=== PATIENT | female | born 2000 | race Native Hawaiian/Other Pacific Islander ===

== ENCOUNTER 2022-01-01 19:31 | Emergency (ER) | payer SELFPAY ==
[~2022-01-01] VITALS: Ht 165 cm; Wt 102.0 kg
--- NOTE | 2022-01-01 19:43 | ED Abdominal Pain ---
General Chief Complaint: OB < 20 WEEKS Stated Complaint: CRAMPING, Nursing Triage Note: PT TO ED VIA [facility] W/ COMPLAINTS OF ABD CRAMPING AND DISCHARGE. PT IS APPROX 3 MONTHS , . PT REPORTS MULTIPLE PREVIOUS MISCARRIAGES AROUND THIS TIME IN . PT IS RH NEGATIVE AND HAS RECEIVED RHOGAM WITH PREVIOUS PREGNANCIES. Source of Information: Patient Exam Limitations: No Limitations History of Present Illness Date Seen by Provider: January 01, 2022 Time Seen by Provider: 19:41 Initial Comments Patient is a 21-year-old female who is G7, P3 presents ED with lower abdominal pain. This occurred about 1 hour ago. She states she was eating at the time. Started having a severe stabbing pain in her lower abdomen with radiation up to her upper abdomen. She did vomit. Rates pain 6 out of 10. She states her last menstrual cycle was October 11. Recently moved to the area. She has not had an ultrasound. She found out she was the day after Mother's Day. History of miscarriage in the past. Denies of any vaginal bleeding. She did not noted her leggings were wet but states there was no blood. Did not smell like urine. Denies fever, chest pain, shortness of breath, headache, dizziness. Refused any pain medication on arrival. History of C-sections. She denies any vaginal discharge, vaginal bleeding, dysuria, hematuria Allergies and Home Medications Allergies Coded Allergies: Penicillins (Verified Allergy, Unknown, 01/01/22) Patient Home Medication List Home Medication List Reviewed: Yes Cephalexin (Cephalexin) 500 Mg Tablet, 500 MG PO BID PRN Prescribed by: BURAK GUILLERMO on 01/01/22 0010 Review of Systems Review of Systems Constitutional: No chills, No diaphoresis, No malaise, No weakness EENTM: No Blurred Vision, No Double Vision, No Eye Pain Respiratory: Denies Cough, Denies Shortness of Air, Denies SOA With Exertion Cardiovascular: Denies Chest Pain, Denies Edema Gastrointestinal: Abdominal Pain; Denies Constipated, Denies Diarrhea, Denies Nausea, Denies Vomiting Genitourinary: Denies Burning, Denies Discharge, Denies Drainage, Denies Frequency Musculoskeletal: No joint pain Skin: No change in color, No change in hair/nails Endocrine: Denies Flushing All Other Systems Reviewed Negative Unless Noted: Yes Past Ercfscf-[id number]-[id number] Hx Patient Social History Tobacco Use?: Yes Tobacco type used: Cigarettes Substance use?: No Additional substance use comme: PREVIOUS RECREATIONAL DRUG USE Alcohol Use?: No Pt feels they are or have been: No Past Medical History Surgery/Hospitalization HX: PT HAS HX ASTHMA AND MULTIPLE PREGNANCIES Last Menstrual Period: Oct 10, 2021 Physical Exam Vital Signs Vital Signs - First Documented 01/01/22 19:33 Pulse 100 Resp 18 B/P (MAP) 115/80 (92) Pulse Ox 98 O2 Delivery Room Air Capillary Refill : Less Than 3 Seconds Height/Weight/BMI Height: '" Weight: lbs. oz. kg; 37.00 BMI Method: General Appearance: WD/WN, no apparent distress HEENT: PERRL/EOMI, normal ENT inspection, TMs normal, pharynx normal Neck: non-tender, full range of motion, supple, normal inspection Respiratory: chest non-tender, lungs clear, normal breath sounds, no respiratory distress Cardiovascular: regular rate, rhythm, no edema, no gallop, no JVD Gastrointestinal: normal bowel sounds, non tender, no organomegaly, no pulsati le mass, tenderness (Suprapubic tenderness on palpation.) Extremities: normal range of motion, non-tender, normal inspection Back: normal inspection, no CVA tenderness Pelvic: normal adnexa, other Neurologic/Psychiatric: 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, no motor/sensory deficits, alert, normal mood/affect, oriented x 3 Skin: normal color, warm/dry Progress/Results/Core Measures Results/Orders Lab Results Laboratory Tests Test 01/01/22 19:33 01/01/22 19:46 01/01/22 19:55 Range/Units Lab Scanned Report LAB Reports [id number] White Blood Count 11.6 H 4.3-11.0 10^3/uL Red Blood Count 3.60 L 3.80-5.11 10^6/uL Hemoglobin 11.7 11.5-16.0 g/dL Hematocrit 34 L 35-52 % Mean Corpuscular Volume 93 80-99 fL Mean Corpuscular Hemoglobin 33 25-34 pg Mean Corpuscular Hemoglobin Concent 35 32-36 g/dL Red Cell Distribution Width 13.2 10.0-14.5 % Platelet Count 258 130-400 10^3/uL Mean Platelet Volume 10.9 9.0-12.2 fL Immature Granulocyte % (Auto) 1 % Neutrophils (%) (Auto) 71 42-75 % Lymphocytes (%) (Auto) 21 12-44 % Monocytes (%) (Auto) 6 0-12 % Eosinophils (%) (Auto) 2 0-10 % Basophils (%) (Auto) 0 0-10 % Neutrophils # (Auto) 8.2 H 1.8-7.8 10^3/uL Lymphocytes # (Auto) 2.4 1.0-4.0 10^3/uL Monocytes # (Auto) 0.7 0.0-1.0 10^3/uL Eosinophils # (Auto) 0.2 0.0-0.3 10^3/uL Basophils # (Auto) 0.0 0.0-0.1 10^3/uL Immature Granulocyte # (Auto) 0.1 0.0-0.1 10^3/uL Sodium Level 136 135-145 MMOL/L Potassium Level 3.4 L 3.6-5.0 MMOL/L Chloride Level 108 H 98-107 MMOL/L Carbon Dioxide Level 18 L 21-32 MMOL/L Anion Gap 10 5-14 MMOL/L Blood Urea Nitrogen 7 7-18 MG/DL Creatinine 0.54 L 0.60-1.30 MG/DL Estimat Glomerular Filtration Rate 133 BUN/Creatinine Ratio 13 Glucose Level 100 70-105 MG/DL Calcium Level 8.4 L 8.5-10.1 MG/DL Corrected Calcium 9.0 8.5-10.1 MG/DL Total Bilirubin 0.1 0.1-1.0 MG/DL Aspartate Amino Transf (AST/SGOT) 14 5-34 U/L Alanine Aminotransferase (ALT/SGPT) 13 0-55 U/L Alkaline Phosphatase 64 40-136 U/L Total Protein 6.1 L 6.4-8.2 GM/DL Albumin 3.2 3.2-4.5 GM/DL Lipase 19 8-78 U/L Human Chorionic Gonadotropin, Quant 21989 H <5 MIU/ML Urine Color YELLOW Urine Clarity CLEAR Urine pH 6.0 5-9 Urine Specific [place] >=1.030 1.016-1.022 Urine Protein TRACE H NEGATIVE Urine Glucose (UA) NEGATIVE NEGATIVE Urine Ketones NEGATIVE NEGATIVE Urine Nitrite POSITIVE H NEGATIVE Urine Bilirubin NEGATIVE NEGATIVE Urine Urobilinogen 0.2 < = 1.0 MG/DL Urine Leukocyte Esterase 2+ H NEGATIVE Urine RBC (Auto) NEGATIVE NEGATIVE Urine RBC 2-5 H /HPF Urine WBC 5-10 H /HPF Urine Squamous Epithelial Cells 10-25 H /HPF Urine Renal Epithelial Cells NONE /HPF Urine Crystals NONE /LPF Urine Bacteria LARGE H /HPF Urine Casts NONE /LPF Urine Mucus NEGATIVE /LPF Urine Culture Indicated YES Urine Test POSITIVE NEGATIVE My Orders Orders - DIO JJ Cbc With Automated Diff (01/01/22 19:38) Comprehensive Metabolic Panel (01/01/22 19:38) Lipase (01/01/22 19:38) Hcg,Quantitative (01/01/22 19:38) Ua Culture If Indicated (01/01/22 19:38) Neis Juan Dna Urine Test (01/01/22 19:38) Chlamydia Trachomatis Urine (01/01/22 19:38) Abo Rh Type (01/01/22 19:41) Urine Bedside (01/01/22 19:56) Hcg,Qualitative Urine (01/01/22 19:57) Urine Culture (01/01/22 19:55) Rhogam Administration (01/01/22 20:49) Rh Immune Globulin Rhophylac (01/01/22 20:49) Rhogam Administration (01/01/22 20:49) Us Ob Preg Late(14-40wks)68802 (01/01/22 19:38) Vital Signs/I&O 01/01/22 01/01/22 19:33 21:42 Pulse 100 100 Resp 18 18 B/P (MAP) 115/80 (92) 112/70 Pulse Ox 98 96 O2 Delivery Room Air Room Air Blood Pressure Mean: 92 Departure Communication (PCP) Patient with abdominal pain right before arrival. Radiate to her upper abdomen. Pain resolved right before arrival. No current vaginal bleeding vaginal discharge or urinary symptoms. Urinalysis concerning for UTI positive for . Last menstrual cycle was late September. Patient beta quant 11,000. Rh-. Patient Was given RhoGAM here since she refused pelvic exam. History of miscarriage in the past and her OB was concern secondary to her RH type. Sexual transmitted infections currently pending. Refused wet mount and did not want to self swab. Limited without pelvic exam. History of miscarriage unclear if this is secondary to Rh-. She is scheduled to follow-up with OB on January 19. Ultrasound showed that she is 21 weeks . She states symptoms have resolved. She is G7, P3 with history of 3 miscarriage. Patient was in a hurry to leave and requested to be discharged. She states she will call [facility] to follow-up in the morning. Recommend prenatals. Will discharge with Keflex. If any worsening symptoms return back to ED. Impression Primary Impression: 21 weeks gestation of Disposition: HOME, SELF-CARE Condition: Stable Departure-Patient Inst. Decision time for Depature: 21:06 Referrals: [facility] [place] Patient Instructions: Care Add. Discharge Instructions: Recommend prenatals. Recommend staying hydrated. Tylenol for pain. Follow-up with OB for further evaluation. If any worsening symptoms return back to ED for further evaluation. Keflex UTI All discharge instructions reviewed with patient and/or family. Voiced understanding. Scripts Cephalexin (Cephalexin) 500 Mg Tablet 500 MG PO BID PRN for 7 Days, #14 TAB Prov: DIO JJ 01/01/22 DIO JJ January 01, 2022 19:43
[2022-01-01 19:54] LABS: BASOPHILS % (AUTO) 0 % (0-10); EOSINOPHILS # (AUTO) 0.2 10^3/uL (0.0-0.3); EOSINOPHILS % (AUTO) 2 % (0-10); HEMATOCRIT 34 % (35-52); HEMOGLOBIN 11.7 g/dL (11.5-16.0); LYMPHOCYTES # (AUTO) 2.4 10^3/uL (1.0-4.0); LYMPHOCYTES % (AUTO) 21 % (12-44); MEAN CORPUSCULAR HEMOGLOBIN 33 pg (25-34); MEAN CORPUSCULAR HGB CONC 35 g/dL (32-36); MEAN CORPUSCULAR VOLUME 93 fL (80-99); MEAN PLATELET VOLUME 10.9 fL (9.0-12.2); MONOCYTES # (AUTO) 0.7 10^3/uL (0.0-1.0); MONOCYTES % (AUTO) 6 % (0-12); NEUTROPHILS # (AUTO) 8.2 10^3/uL (1.8-7.8); NEUTROPHILS % (AUTO) 71 % (42-75); PLATELET COUNT 258 10^3/uL (130-400); WHITE BLOOD COUNT 11.6 10^3/uL (4.3-11.0)
[2022-01-01 20:02] LABS: BILIRUBIN,URINE NEGATIVE (NEGATIVE); CLARITY,URINE CLEAR; COLOR,URINE YELLOW; GLUCOSE, URINE (UA) NEGATIVE (NEGATIVE); KETONES,URINE NEGATIVE (NEGATIVE); LEUKOCYTE ESTERASE ,URINE 2+ (NEGATIVE); NITRITE,URINE POSITIVE (NEGATIVE); PROTEIN,URINE TRACE (NEGATIVE)
[2022-01-01 20:14] LABS: BACTERIA,URINE LARGE /HPF
[2022-01-01 20:27] LABS: ALBUMIN 3.2 GM/DL (3.2-4.5); BILIRUBIN,TOTAL 0.1 MG/DL (0.1-1.0); CALCIUM 8.4 MG/DL (8.5-10.1); CREATININE SERUM 0.54 MG/DL (0.60-1.30); POTASSIUM 3.4 MMOL/L (3.6-5.0); TOTAL PROTEIN 6.1 GM/DL (6.4-8.2)
--- NOTE | 2022-01-01 21:02 | Diagnostic Imaging Report ---
INDICATION: Abdominal pain. Unsure of dates. TECHNIQUE: Multiple real-time grayscale images were obtained over the gravid uterus. COMPARISON: None. FINDINGS: A single live intrauterine gestation is visualized in transverse orientation. Measurements provided below correspond with an estimated age of 21 weeks 1 day with an estimated due date of 05/13/2022. heart tones measure 153 cm/s. The placenta is anterior and not low lying. The amniotic fluid visually has a normal appearance although no measurements were provided. The cervix has a normal appearance and measures 3.8 cm in length. A formal anatomic survey was not performed. No obvious abnormalities are identified. Biometrical measurements are as follows: Biparietal 4.93 cm, age 21 weeks 0 days. Head circumference 18.97 cm, age 21 weeks 2 days. Abdominal circumference 16.08 cm, age 21 weeks 2 days. Femur length 3.35 cm, age 20 weeks 4 days. Sonographic estimate age: 21 weeks 1 days. Sonographic estimated date of delivery: 05/13/2022. Estimated Weight: 386 gm (+/- 57 gm). LMP percentile: >98%. heart rate: 153 beats per minute. number: 1 of 1. IMPRESSION: 1. Single live intrauterine gestation in transverse orientation measuring 21 weeks 1 day with an estimated due date of 05/13/2022. Recommend continued follow-up, as indicated. 2. No abnormalities are identified on this exam. Dictated by: Dictated on workstation # [id number]
[2022-01-01] MEDS ORDERED: CEPH500T PO (21:08)
[2022-01-01 21:42] VITALS: BP 112/70
== END 2022-01-01 21:42 | disposition home or self-care (01) ==
LOC: ER 19:33
DX: O26.892 Other specified pregnancy related conditions, second trimester (principal); R10.30 Lower abdominal pain, unspecified; Z87.59 Personal history of other complications of pregnancy, childbirth and the puerperium; Z3A.21 21 weeks gestation of pregnancy
CPT/HCPCS: 36415; 76805; 80053; 81000; 83690; 84702; 84703; 85025; 86900; 86901; 87077; 87088; 87491; 87591; 96372

== ENCOUNTER 2022-03-09 22:10 | Outpatient (CLI) | payer MEDICAID ==
[~2022-03-09] VITALS: Ht 166 cm; Wt 108.4 kg
[~2022-03-09 22:10] MED LIST: CEPH500T PO
[2022-03-09 22:19] VITALS: BP 132/65
[2022-03-09 22:44] LABS: BILIRUBIN,URINE NEGATIVE (NEGATIVE); CLARITY,URINE CLOUDY; COLOR,URINE YELLOW; GLUCOSE, URINE (UA) NEGATIVE (NEGATIVE); KETONES,URINE TRACE (NEGATIVE); LEUKOCYTE ESTERASE ,URINE 1+ (NEGATIVE); NITRITE,URINE NEGATIVE (NEGATIVE); PROTEIN,URINE TRACE (NEGATIVE)
[2022-03-09 23:03] LABS: AMORPHOUS SEDIMENT,UR LARGE AMOR PHOSPHATE /LPF; BACTERIA,URINE MODERATE /HPF; RBC,URINE 25-50 /HPF
[2022-03-09] MEDS ORDERED: PREN-142 PO (23:11)
--- NOTE | 2022-03-11 07:45 | Physician Query-Final Dx ---
Clinic Account Progress/Dx Physician Query: Please give diagnosis Please include # weeks gestation Date of Service Mar 09, 2022 at 22:10 BHARATH,AugMar 11, 2022 07:45
== END 2022-03-09 23:15 | disposition home or self-care (01) ==
LOC: WSo 22:10
PROVIDERS: ATTEND Family Medicine
DX: O62.9 Abnormality of forces of labor, unspecified (principal); Z3A.31 31 weeks gestation of pregnancy
CPT/HCPCS: 81000; 87077; 87088; 99213

== ENCOUNTER 2022-04-25 14:28 | Inpatient (IN) | payer MEDICAID ==
[~2022-04-25] VITALS: Ht 157.2 cm; Wt 113.4 kg
[2022-04-25] VITALS (19 sets, daily range): BP systolic 113–135; BP diastolic 50–84
[~2022-04-25 14:28] MED LIST changes: +PREN-142 PO
--- NOTE | 2022-04-25 16:21 | Postpartum Progress Note ---
Note Note Day # 1 Subjective: Patient reports doing well without complaints. She is ambulating, voiding. Tolerating a regular diet without nausea or vomiting. Normal lochia. Pain is well controlled with oral pain medications. Breast feeding. She denies any CP, SOB, palpitions, FLOREZ, vision abnormalities, LE pain Objective: Vital Signs 04/25/22 15:00 Temp 36.0 Pulse 125 Resp 18 Pulse Ox 98 O2 Delivery Room Air Physical Exam: General - Alert and oriented, no apparent distress Resp - nonlabored, symmetric chest rise Heart: normal rate and peripheral perfusion Abdomen - Soft, appropriately tender to palpation, non-distended, fundus firm at umbilicus Extremities - mild equal bilat pedal edema, NTTP, negative Ethel's bilaterally Assessment: post- day # 1, status post vacuum assisted vaginal delivery. Recovering well, hemodynamically stable, meeting discharge criteria Plan: Routine care. Encourage breast feeding. Encourage ambulation. Ferrous sulfate supplementation. Plan for discharge today Vitals - Labs Vital Signs - I&O Vital Signs Date Time Temp Pulse Resp B/P (MAP) Pulse Ox O2 Delivery O2 Flow Rate FiO2 04/25/22 15:00 36.0 125 18 98 Room Air 04/25/22 14:57 Room Air CHAVA ROJAS MD Apr 25, 2022 16:21
[2022-04-25] MEDS ORDERED: FAMOTIDINE 20MG/2ML IV (PEPCID) IV NR (16:30)
[2022-04-25] MEDS ORDERED: LACTATED RINGERS 1,000 ML IV PRN (16:30)
[2022-04-25] MEDS ORDERED: CITRIC ACID/SOB CIT (BICITRA) 30 ML UDC PO NR (16:30)
[2022-04-25] MEDS ORDERED: METOCLOPRAMIDE INJ 10 MG/2 ML (REGLAN) IV NR (16:30)
[2022-04-25] MEDS ORDERED: CATHETER FLUSH 10 ML SYR IV PRN (16:30)
[2022-04-25 16:36] LABS: BASOPHILS % (AUTO) 0 % (0-10); EOSINOPHILS # (AUTO) 0.3 10^3/uL (0.0-0.3); EOSINOPHILS % (AUTO) 2 % (0-10); HEMATOCRIT 32 % (35-52); LYMPHOCYTES # (AUTO) 1.9 10^3/uL (1.0-4.0); LYMPHOCYTES % (AUTO) 18 % (12-44); MEAN CORPUSCULAR HEMOGLOBIN 33 pg (25-34); MEAN CORPUSCULAR HGB CONC 35 g/dL (32-36); MEAN CORPUSCULAR VOLUME 95 fL (80-99); MEAN PLATELET VOLUME 12.6 fL (9.0-12.2); MONOCYTES # (AUTO) 0.8 10^3/uL (0.0-1.0); MONOCYTES % (AUTO) 7 % (0-12); NEUTROPHILS # (AUTO) 7.9 10^3/uL (1.8-7.8); NEUTROPHILS % (AUTO) 72 % (42-75); PLATELET COUNT 210 10^3/uL (130-400); WHITE BLOOD COUNT 10.9 10^3/uL (4.3-11.0)
[2022-04-25] MEDS: KETOROLAC 15 MG/ML VIAL IV SCH ×2 (17:00→23:32)
--- NOTE | 2022-04-25 17:11 | History & Physical-OB ---
OB - Chief Complaint & HPI Date/Time Date of Admission: Date of Admission: Apr 25, 2022 at 15:26 Date seen by a Provider: Apr 25, 2022 Time Seen by a Provider: 15:30 Chief Complaint/History OB-Reason for Admission/Chief: Rupture of Membranes (denies contractions) Hx : 5 Hx Para: 3 Hx Last Menstrual Period: 08/04/2021 Expected Date of Delivery: May 08, 2022 Gestational Age in Weeks: 37 Gestational Age in Days: 5 Indication for : desires repeat , other (premature rupture of membranes) Other Patient presents for LOF x 6 hours prior to presentation. Reports clear fluid. Denies vaginal bleeding. Notes good movements. Denies any fevers, chills, nausea, vomiting, palpitations, CP, SOB, or abnormal discharge odor Allergies and Home Medications Allergies Coded Allergies: Penicillins (Verified Allergy, Unknown, 01/01/22) hydrocodone (Verified Allergy, Unknown, Rash, 04/25/22) Patient Home Medication List Home Medication List Reviewed: Yes Vit No.124/Iron/FA ( Vitamin Tablet) 27 Mg Iron-800 Mcg Tablet, 1 EACH PO DAILY, (Reported) Entered as Reported by: SUSAN BRYANT on 03/09/22 6701 Last Action: Reviewed OB - History Hx of Present Care: Yes Ultrasounds: Normal mid trimester US Obstetrical Complications: None Medical Complications: Other (Obesity) Information Induced Hypertension: No Maternal Gestational Diabetes: No Hemorrhage: No Obstetrical History Hx : 5 Hx Para: 3 Hx # Term Pregnancies: 3 Hx # Pregnancies: 0 Number of Living Children: 3 Hx Termination: No Hx Total # of Abortions (Spona: 1 Hx Multiple Gestation: No Hx Ectopic : No Hx Stillbirth: No Hx Complication: No Hx Induced Hypertens: No Hx Maternal Gestational Diabet: No Hx Hemorrhage: No Delivery History Hx Section: Yes (x3) Patient Past Medical History Denies Social History/Family History Alcohol Use: Denies Use Recreational Drug Use: No Smoking Cessation: Current every day smoker 2nd Hand Smoke Exposure: No Immunizations Rubella: immune OB - Admission Exam Physical Exam Vitals: Vital Signs 04/25/22 15:00 Temp 36.0 Pulse 125 Resp 18 Pulse Ox 98 O2 Delivery Room Air HEENT: EOMI Lungs: Equal (nonlabored respirations, symmetric chest rise) Abdomen: Gravid (NTTP) Extremities: Other (mild equal bilat LE edema. NTTP) Cervical Dilatation: 1cm Effacement: 0% Station: -3 Membranes: Ruptured Amniotic Fluid: Clear Heart Rate: 130's Accelerations: Accelerations Present Decelerations: No Decelerations Short Term Variability: Present Principal Consulting Engineer Variability: Average (6-25) Contractions on Admission: None Labs Laboratory Tests Test 04/25/22 16:23 Range/Units White Blood Count 10.9 4.3-11.0 10^3/uL Red Blood Count 3.34 L 3.80-5.11 10^6/uL Hemoglobin 11.0 L 11.5-16.0 g/dL Hematocrit 32 L 35-52 % Mean Corpuscular Volume 95 80-99 fL Mean Corpuscular Hemoglobin 33 25-34 pg Mean Corpuscular Hemoglobin Concent 35 32-36 g/dL Red Cell Distribution Width 12.5 10.0-14.5 % Platelet Count 210 130-400 10^3/uL Mean Platelet Volume 12.6 H 9.0-12.2 fL Immature Granulocyte % (Auto) 0 % Neutrophils (%) (Auto) 72 42-75 % Lymphocytes (%) (Auto) 18 12-44 % Monocytes (%) (Auto) 7 0-12 % Eosinophils (%) (Auto) 2 0-10 % Basophils (%) (Auto) 0 0-10 % Neutrophils # (Auto) 7.9 H 1.8-7.8 10^3/uL Lymphocytes # (Auto) 1.9 1.0-4.0 10^3/uL Monocytes # (Auto) 0.8 0.0-1.0 10^3/uL Eosinophils # (Auto) 0.3 0.0-0.3 10^3/uL Basophils # (Auto) 0.0 0.0-0.1 10^3/uL Immature Granulocyte # (Auto) 0.0 0.0-0.1 10^3/uL OB - Assessment/Plan/Diagnosis Assessment Assessment: rupture of membranes Admission Dx Intrauterine at 37w5d Premature rupture of membranes Hx of x3 desiring repeat Admission Status: Inpatient Order (span 2 midnights) Reason for Inpatient Admission: section Plan Plan: Section CHAVA ROJAS MD Apr 25, 2022 17:11
[2022-04-25] MEDS ORDERED: GENTAMICIN 40 MG/ML 2 ML INJ SDV IV SCH (17:15)
[2022-04-25] MEDS ORDERED: AZITHROMYCIN INJECTION 500 MG in NS (IVPB) 250 ML IV ONE (17:15)
[2022-04-25] MEDS ORDERED: CLINDAMYCIN 900 MG/50 ML IVPB 50 ML IV ONE ×2 (17:15→17:17)
[2022-04-25] MEDS ORDERED: AZITHROMYCIN INJECTION 500 MG/5 ML VIAL ONE (17:17)
[2022-04-25] MEDS ORDERED: ONDANSETRON 4 MG/2 ML (SDV) Z0FRAN ONE (17:20)
[2022-04-25] MEDS ORDERED: KETOROLAC 30 MG/ML VIAL ONE (17:20)
[2022-04-25] MEDS ORDERED: OXYTOCIN PRE-MIX DRIP 1,000 ML IV ONE (17:20)
[2022-04-25] MEDS: LACTATED RINGERS 1,000 ML IV PRN ×2 (17:32→18:23)
[2022-04-25] MEDS ORDERED: fentaNYL INJ 100 MCG/2 ML AMP ONE (17:39)
[2022-04-25] MEDS ORDERED: PHENYLEPHRINE 100 MCG/ML 10 ML (ANESTHESIA) SYR ONE (18:26)
[2022-04-25] MEDS ORDERED: NALOXONE 0.4 MG/ML 1 ML (NARCAN) VIAL IV PRN (19:15)
[2022-04-25] MEDS ORDERED: OXYTOCIN PRE-MIX DRIP 500 ML IV SCH (19:15)
[2022-04-25] MEDS ORDERED: morphine INJ 10 MG/ML 1ML (SYR OR VIAL) IVP ONE (19:30)
[2022-04-25] MEDS ORDERED: ONDANSETRON 4 MG/2 ML (SDV) Z0FRAN IVP PRN ×2 (19:30→21:00)
[2022-04-25] MEDS ORDERED: HYDROmorphone 2 MG/ML VIAL (DILAUDID) IV ONE (19:30)
[2022-04-25] MEDS ORDERED: PROMETHAZINE INJ 25 MG/ML (PHENERGAN) AMP IVP ONE (19:30)
[2022-04-25] MEDS ORDERED: MEPERIDINE (DEMEROL) INJ 50 MG/ML IVP ONE (19:30)
--- NOTE | 2022-04-25 19:36 | Cesarean Section Operative ---
Procedure Procedure Note Pre-operative Diagnosis: Tigist Chaparro is a (21 /Para 5 / 3, Gestational Age (wks)37 - Premature rupture of membranes - Intrauterine pregnanct at 37w5d - Hx of x3 desiring repeat Post-operative Diagnosis: same - s/p repeat low transverse Procedure: repeat low transverse section Physician: CHAVA ROJAS MD Stack Matcher: Oksana Trejo - The assistance of Oksana Trejo was needed for retraction of tissue in order to achieve adequate visualization to perform the surgery Estimated blood loss: 500 mL Disposition: PACU Findings: Living male infant, Apgars of 8 and 8 at 1 and 5 minutes respectively, weight 7 pounds and 10 ounces Intact placenta, 3vc Normal appearing uterus 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 Normal right fallopian tube and ovaries. Indications:Tigist Chaparro is a (21 /Para 5 / 3,Gestational Age 37 w5d presenting for premature rupture of membranes. Obstetrics history is significant for hx of x3, and desires repeat delivery Procedure Details: The patient was seen in pre-op and the procedure was discussed with the patient in full, including the risks, benefits, and alternatives. All questions were answered. The patient was taken to the operating room and a time out was performed, verifying patient and procedure. She received surgical prophylactic antibiotics of Clindamycin, Gentamicin, and azithromycin given PCN allergy. After spinal anesthesia was placed by our anesthesia colleagues, the patient was placed in the dorsal supine with leftward tilt for uterine displacement.~ Her abdomen was then prepped and draped in the typical sterile fashion. A Pfannenstiel skin incision was made using a scalpel and carried down through the underlying fascia. The fascia was incised in the midline, and the incision was extended bilaterally using Ventura scissors. The fascia was tented up using Kochers on both the inferior and superior fascia side, and the rectus muscle was dissected off bluntly and sharply using Ventura scissors. The rectus muscles were at midline, and the underlying peritoneum was identified and entered bluntly in the midline. This was then stretched laterally using manual strength. After entering the abdominal cavity and confirming lack of intraperitoneal adhesions, the bladder blade was placed, and the bladder flap was created with the use of Metzenbaum scissors.The bladder blade was replaced to incorporate the bladder flap. The scalpel was used to make a low transverse uterine incision in a curvilinear fashion. The incision was extended in a cephalocaudad fashion. Amniotomy was performed with an Allis clamp with return of clear fluid. The infant's head was grasped and brought to the level of the incision. Fundal pressure was applied and infant was delivered without difficulty. Mouth and lisseth es were suctioned with bulb suction. was vigorous with good color, tone, and cry at the time of delivery. Umbilical cord clamping was delayed for 30 seconds. The umbilical cord was then clamped and cut, the infant was handed off to the pediatric staff. A sample of cord blood was then obtained. The placenta was delivered intact via uterine massage. The uterus was exteriorized and cleared of all clots and debris. The uterine incision was closed using 0 Vicryl in a running locked fashion. The uterus was flexed forward and the posterior rectouterine space was inspected and cleared of all clots and debris. Again the hysterotomy site was examined and hemostasis was observed. The bilateral tubes and ovaries appeared normal. The uterus was placed back into the abdominal cavity and abdominal gutters were cleared of all clots and debris. A final check of the uterine incision showed it to be hemostatic, after placement of a figure of eight stitch about midway on the hysterotomy where slight bleeding was noted. The peritoneum was closed using 3-0 Vicryl in a running fashion. The fascia was closed with 0 Vicryl in a running fashion. The sub cutaneous space was hemostatic, and irrigated. The skin was then closed using 4- 0 Monocryl in a running subcuticular fashion. A pressure dressing was applied. All sponge, lap and needle counts were correct at the end of the procedure per nursing. Vitals - Labs Vital Signs - I&O Vital Signs Date Time Temp Pulse Resp B/P (MAP) Pulse Ox O2 Delivery O2 Flow Rate FiO2 04/25/22 15:00 36.0 125 18 98 Room Air 04/25/22 14:57 Room Air 04/25/22 14:40 36.0 125 20 135/78 (97) Room Air Labs Laboratory Tests 04/25/22 16:23: White Blood Count 10.9, Red Blood Count 3.34L, Hemoglobin 11.0L, Hematocrit 32L, Mean Corpuscular Volume 95, Mean Corpuscular Hemoglobin 33, Mean Corpuscular Hemoglobin Concent 35, Red Cell Distribution Width 12.5, Platelet Count 210, Mean Platelet Volume 12.6H, Immature Granulocyte % (Auto) 0, Neutrophils (%) ( Auto) 72, Lymphocytes (%) (Auto) 18, Monocytes (%) (Auto) 7, Eosinophils (%) (Auto) 2, Basophils (%) (Auto) 0, Neutrophils # (Auto) 7.9H, Lymphocytes # (Auto) 1.9, Monocytes # (Auto) 0.8, Eosinophils # (Auto) 0.3, Basophils # (Auto) 0.0, Immature Granulocyte # (Auto) 0.0 CHAVA ROJAS MD Apr 25, 2022 19:36
[2022-04-25] MEDS ORDERED: GENTAMICIN 40 MG/ML 2 ML INJ SDV IV ONE (21:00)
[2022-04-25] MEDS ORDERED: diphenhydrAMINE 25 MG TAB (BENADRYL) PO PRN (21:00)
[2022-04-25] MEDS: ACETAMINOPHEN 500 MG TAB (TYLENOL) PO SCH (21:17)
[2022-04-25] MEDS: DOCUSATE SODIUM 100 MG (COLACE) CAP PO SCH (21:18)
[2022-04-25] MEDS ORDERED: CATHETER FLUSH 10 ML SYR IV SCH (22:00)
[2022-04-26 00:35] VITALS: BP 132/86
[2022-04-26] MEDS: ACETAMINOPHEN 500 MG TAB (TYLENOL) PO SCH ×4 (03:13→21:14)
[2022-04-26 03:15] VITALS: BP 131/90
[2022-04-26] MEDS: KETOROLAC 15 MG/ML VIAL IV SCH (06:37)
[2022-04-26 06:56] LABS: BASOPHILS % (AUTO) 0 % (0-10); EOSINOPHILS # (AUTO) 0.3 10^3/uL (0.0-0.3); EOSINOPHILS % (AUTO) 3 % (0-10); HEMATOCRIT 30 % (35-52); HEMOGLOBIN 10.5 g/dL (11.5-16.0); LYMPHOCYTES # (AUTO) 2.2 10^3/uL (1.0-4.0); LYMPHOCYTES % (AUTO) 21 % (12-44); MEAN CORPUSCULAR HEMOGLOBIN 33 pg (25-34); MEAN CORPUSCULAR HGB CONC 35 g/dL (32-36); MEAN CORPUSCULAR VOLUME 95 fL (80-99); MEAN PLATELET VOLUME 12.4 fL (9.0-12.2); MONOCYTES % (AUTO) 10 % (0-12); NEUTROPHILS # (AUTO) 6.9 10^3/uL (1.8-7.8); NEUTROPHILS % (AUTO) 66 % (42-75); PLATELET COUNT 168 10^3/uL (130-400); WHITE BLOOD COUNT 10.5 10^3/uL (4.3-11.0)
[2022-04-26 09:21] VITALS: BP 123/73
[2022-04-26] MEDS: DOCUSATE SODIUM 100 MG (COLACE) CAP PO SCH ×2 (09:21→21:11)
--- NOTE | 2022-04-26 13:22 | Anesthesia-Regional Post-Op ---
Regional Patient Condition Mental Status: Alert, Oriented x3 Circulation: Same as Pre-Op Headache: Absent Sensation: Full Recovery Motor Block: Absent Post Op Complications Complications None Follow Up Care/Instructions Patient Instructions None needed. Anesthesia/Patient Condition Patient is doing well, no complaints, stable vital signs, no apparent adverse anesthesia problems. No complications reported per nursing. SILVA BARRAZA CRNA Apr 26, 2022 13:22
--- NOTE | 2022-04-26 14:04 | Postpartum Progress Note ---
Post Op Post-operative Day #1 s/p repeat LTCS Subjective: Patient is without complaints. Pain control is reasonable, but could better per pt report. Minimal pain relief with oral meds. Ambulating without difficulty, voiding after mcgowan removed. Tolerating a regular diet without nausea or vomiting. Normal lochia. Passing flatus. She is currently formula feeding, but would like to attempt breast feeding. She denies CP, SOB, palpitations, FLOREZ, vision abnormalities, LE pain Objective: Vital Signs 04/26/22 09:21 Temp 36.4 Pulse 83 Resp 18 B/P (MAP) 123/73 (90) Pulse Ox 100 O2 Delivery Room Air Physical Exam: General - Alert and oriented, no apparent distress Lungs: Mild rhonchi clears with cough, nonlabored respirations, symmetric chest rise Heart: normal rate and rhythm. Normal peripheral perfusion Abdomen - Soft, appropriately tender to palpation, non-distended, fundus difficult to palpate due to body habitus and pt discomfort Incision - clean, dry and intact; no erythema or induration, no drainage Extremities - mild equal bilat LE edema, negative Ethel's bilaterally, NTTP Assessment: Post-operative day # 1, status post repeat LTCS. Recovering well, hemodynamically stable Acute blood loss anemia Hx of tobacco abuse Elevated blood pressure Obesity Plan: Routine post-operative care. Ferrous sulfate supplementation. Encourage smoking cessation BP range 110-130s/70-90s: continue to monitor Obesity: encourage healthy diet and weight loss Encourage breast feeding: breast pump ordered. RN to assist with breast feeding. Encourage ambulation. VTE prophylaxis: SCDs while in bed. Encourage ambulation Plan for discharge: anticipate POD#2-3 if no new occurs develop Vitals - Labs Vital Signs - I&O Vital Signs Date Time Temp Pulse Resp B/P (MAP) Pulse Ox O2 Delivery O2 Flow Rate FiO2 04/26/22 09:21 36.4 83 18 123/73 (90) 100 Room Air 04/26/22 03:15 36.6 72 18 131/90 (104) 99 Room Air 04/26/22 00:35 36.4 74 18 132/86 (101) 100 Room Air 04/25/22 22:00 36.4 68 18 126/80 (95) 100 Room Air 04/25/22 21:00 68 18 119/74 (89) 99 Room Air 04/25/22 20:30 Room Air 04/25/22 20:20 36.2 56 18 123/72 (89) 100 Room Air 04/25/22 20:05 Room Air 04/25/22 20:00 36.3 20 123/83 (96) 99 Room Air 04/25/22 20:00 Room Air 04/25/22 19:50 20 113/83 (93) 97 Room Air 04/25/22 19:45 Room Air 04/25/22 19:40 20 115/84 (94) 98 Room Air 04/25/22 19:30 20 115/84 (94) 98 Room Air 04/25/22 19:30 Room Air 04/25/22 19:20 20 113/69 (84) 99 Room Air 04/25/22 19:15 Room Air 04/25/22 19:12 36.3 20 113/73 (86) 99 Room Air 04/25/22 19:12 Room Air 04/25/22 15:00 36.0 125 18 98 Room Air 04/25/22 14:57 Room Air 04/25/22 14:40 36.0 125 18 98 Room Air 04/25/22 14:40 36.0 125 20 135/78 (97) Room Air I & O 04/26/22 07:00 Intake Total 2540 ml Output Total 1850 ml Balance 690 ml Labs Laboratory Tests 04/25/22 16:23: White Blood Count 10.9, Red Blood Count 3.34L, Hemoglobin 11.0L, Hematocrit 32L, Mean Corpuscular Volume 95, Mean Corpuscular Hemoglobin 33, Mean Corpuscular Hemoglobin Concent 35, Red Cell Distribution Width 12.5, Platelet Count 210, Mean Platelet Volume 12.6H, Immature Granulocyte % (Auto) 0, Neutrophils (%) (Auto) 72, Lymphocytes (%) (Auto) 18, Monocytes (%) (Auto) 7, Eosinophils (%) (Auto) 2, Basophils (%) (Auto) 0, Neutrophils # (Auto) 7.9H, Lymphocytes # ( Auto) 1.9, Monocytes # (Auto) 0.8, Eosinophils # (Auto) 0.3, Basophils # (Auto) 0.0, Immature Granulocyte # (Auto) 0.0 04/26/22 06:36: White Blood Count 10.5, Red Blood Count 3.17L, Hemoglobin 10.5L, Hematocrit 30L, Mean Corpuscular Volume 95, Mean Corpuscular Hemoglobin 33, Mean Corpuscular Hemoglobin Concent 35, Red Cell Distribution Width 12.5, Platelet Count 168, Mean Platelet Volume 12.4H, Immature Granulocyte % (Auto) 1, Neutrophils (%) (Auto) 66, Lymphocytes (%) (Auto) 21, Monocytes (%) (Auto) 10, Eosinophils (%) (Auto) 3, Basophils (%) (Auto) 0, Neutrophils # (Auto) 6.9, Lymphocytes # (Auto) 2.2, Monocytes # (Auto) 1.0, Eosinophils # (Auto) 0.3, Basophils # (Auto) 0.0, Immature Granulocyte # (Auto) 0.1 Microbiology 04/25/22 MRSA Screen - Final, Complete MRSA not isolated CHAVA ROJAS MD Apr 26, 2022 14:04
[2022-04-26] MEDS ORDERED: IBUPROFEN 600 MG (MOTRIN) TAB PO ONE (15:13)
[2022-04-26] MEDS ORDERED: IBUPROFEN 800 MG (MOTRIN) TAB PO ONE (15:22)
[2022-04-26] MEDS: IBUPROFEN 800 MG (MOTRIN) TAB PO SCH ×2 (15:24→23:43)
[2022-04-26 15:42] VITALS: BP 158/66
[2022-04-26 19:00] VITALS: BP 165/102
[2022-04-26 23:20] VITALS: BP 112/70
[2022-04-27] MEDS: ACETAMINOPHEN 500 MG TAB (TYLENOL) PO SCH ×2 (04:08→12:41)
[2022-04-27 04:15] VITALS: BP 120/77
[2022-04-27 05:10] VITALS: BP 128/85
[2022-04-27] MEDS: IBUPROFEN 800 MG (MOTRIN) TAB PO SCH ×2 (06:34→12:40)
--- NOTE | 2022-04-27 08:11 | Progress Note ---
Standard Progress Note Progress Notes/Assess & Plan Date Seen by a Provider: Apr 27, 2022 Time Seen by a Provider: 08:09 Progress/Assessment & Plan This patient is without complaint. She is ambulating, voiding, tolerating oral intake well and has good pain control. She is requesting discharge home. Vital Signs Date Time Temp Pulse Resp B/P (MAP) Pulse Ox O2 Delivery O2 Flow Rate FiO2 04/27/22 05:10 36.4 73 18 128/85 (99) 99 Room Air 04/27/22 04:15 36.5 60 18 120/77 (91) 100 Room Air 04/26/22 23:20 36.7 74 18 112/70 (84) 100 Room Air 04/26/22 21:15 04/26/22 19:00 86 18 165/102 (123) 98 Room Air 04/26/22 15:42 79 18 158/66 (96) 100 Room Air 04/26/22 09:21 36.4 83 18 123/73 (90) 100 Room Air Vital signs are stable. Patient is afebrile. The abdomen is benign. The surgical incision is clean dry and intact. Extremities show no clubbing or cyanosis. There is no Homans' sign. Assessment and plan Postoperative day #2 status post repeat delivery. She was seeing a physician in [place] but presented here with spontaneous rupture membranes. She had had 3 previous C-sections Dr Salinas proceeded with repeat delivery. Patient is doing well will be discharged home with follow-up in Final Diagnosis 39-week repeat CATRACHITA CORTÉS MD Apr 27, 2022 08:11
[2022-04-27] MEDS ORDERED: IBUP-1780 PO (08:13)
[2022-04-27] MEDS ORDERED: DOCU100C37 PO (08:13)
[2022-04-27] MEDS ORDERED: OXYC1TAB12 PO (08:13)
--- NOTE | 2022-04-27 08:15 | Discharge Inst-Surgical ---
Discharge Inst-Surgical Depart Medication/Instructions New, Converted or Re-Newed RX: Transmitted to Pharmacy Consults/Follow Up Patient Instructions: As directed Orders & Referrals Follow Up Appt: RTC 1 week for incision check with PCP Call to make follow up appt. for patient in 6 weeks with PCP Activity Per routine post instructions. Diet as tolerated Patient may shower or tub bathe as desired. Continue home meds Activity Activity as Tolerated: No Diet Discharge Diet: No Restrictions CATRACHITA CORTÉS MD Apr 27, 2022 08:15
[2022-04-27 08:30] VITALS: BP 132/75
[2022-04-27] MEDS: DOCUSATE SODIUM 100 MG (COLACE) CAP PO SCH (08:43)
[2022-04-27 12:30] VITALS: BP 133/81
[2022-04-27 15:55] VITALS: BP 133/81
== END 2022-04-27 15:55 | disposition home or self-care (01) | DRG 787 ==
LOC: WSo 14:28 → LDRP 14:28 → WSo 15:25 → LDRP 15:26
PROVIDERS: ADMIT Obstetrics & Gynecology; ATTEND Obstetrics & Gynecology
PROC: 10D00Z1 Extraction of Products of Conception, Low, Open Approach (ICD-10-PCS; principal; 2022-04-25 18:00)
DX: O34.211 Maternal care for low transverse scar from previous cesarean delivery (principal); D62 Acute posthemorrhagic anemia; Z3A.37 37 weeks gestation of pregnancy; Z37.0 Single live birth; O42.92 Full-term premature rupture of membranes, unspecified as to length of time between rupture and onset of labor; O99.334 Smoking (tobacco) complicating childbirth; F17.210 Nicotine dependence, cigarettes, uncomplicated; O99.214 Obesity complicating childbirth; E66.9 Obesity, unspecified; O90.81 Anemia of the puerperium
CPT/HCPCS: 36415; 83033; 85025; 86850; 86900; 86901; 87081; 94664; 99212

== ENCOUNTER → 2023-06-03 | Outpatient (CLI) | payer MEDICAID ==
[~2023-06-03] MED LIST changes: +DOCU100C37 PO; +IBUP-1780 PO; +OXYC1TAB12 PO
--- NOTE | 2023-06-03 17:31 | Diagnostic Imaging Report ---
INDICATION: Supervision of normal . Anatomy scan. TECHNIQUE: Multiple real-time grayscale images were obtained over the gravid uterus. COMPARISON: None. FINDINGS: A single live intrauterine gestation is visualized in cephalic presentation. heart tones measure 139 BPM. The placenta is posterior and not low lying. The WILLIE is on the low end of normal and measures 8.6 cm. The kidneys, bladder, stomach, brain, four-chamber heart, three-vessel cord, spine, and cord insertion are visualized and have a normal appearance. Views of the adnexa are unremarkable. Biometrical measurements are as follows: Biparietal 3.85 cm, age 17 weeks 6 days. Head circumference 16.03 cm, age 18 weeks 6 days. Abdominal circumference 13.61 cm, age 19 weeks 1 days. Femur length 3.41 cm, age 20 weeks 6 days. Sonographic estimate age: 19 weeks 2 days. Sonographic estimated date of delivery: 10/26/2023. Estimated Weight: 306 gm (+/- 45 gm). LMP percentile: 60%. heart rate: 139 beats per minute. number: 1 of 1. IMPRESSION: 1. Single live intrauterine gestation measuring 19 weeks 2 days with an estimated due date of 10/26/2023. These are within range with the clinical dates. 2. No anatomic abnormalities are identified on this exam. 3. WILLIE is on the low end of normal measuring 8.6 cm. Recommend continued attention on follow-up. Dictated by: Dictated on workstation # [id number]
== END ==
LOC: RAD 14:20
PROVIDERS: ATTEND Nurse Practitioner Women's Health
DX: Z34.81 Encounter for supervision of other normal pregnancy, first trimester (principal)
CPT/HCPCS: 76805